=== PATIENT | male | born 1960 | race Caucasian/White ===

== ENCOUNTER 2019-12-09 08:56 | Outpatient (CLI) | payer MEDICAID ==
[~2019-12-09] VITALS: Ht 162.6 cm; Wt 65.8 kg
--- NOTE | 2019-12-09 10:30 | Consultation ---
DATE OF CONSULTATION: 12/09/2019 GASTROENTEROLOGY CONSULTATION CONSULTING PHYSICIAN: Grant Jimenez MD. CHIEF COMPLAINT: G-tube malfunctioning. HISTORY OF PRESENT ILLNESS: This is a 59-year-old male with past medical history of brain tumor, apparently was benign, had a surgery done at [facility] in June of 2019 and after the surgery he needed to have a G-tube placement. At one point, apparently, G-tube came out and they had to replace it. He has a history of colonoscopy and endoscopy done on the same admission, according to the family, now is here for G-tube malfunctioning. PAST MEDICAL HISTORY: Brain tumor, status post surgery. PAST SURGICAL HISTORY: G-tube replacement and brain surgery. MEDICATIONS: Please see medication reconciliation list. FAMILY HISTORY: Kidney cancer in father. SOCIAL HISTORY: The patient denies any tobacco, alcohol, or drug abuse. ALLERGIES: No known allergies. REVIEW OF SYSTEMS: Limited. PHYSICAL EXAMINATION: VITAL SIGNS: Temperature 98, blood pressure 95/56, respirations 20, pulse 100. Height is 5 feet 4 inches, weight is 145. HEENT: Normocephalic and atraumatic. Sclerae are anicteric. NECK: Supple. No evidence of obvious lymphadenopathy. CARDIOVASCULAR: Regular rate and rhythm. Plus S1 and S2. LUNGS: Clear to auscultation bilaterally. ABDOMEN: Positive bowel sounds. Soft and nontender. No rebound. No guarding. No peritoneal sign. EXTREMITIES: No clubbing. No cyanosis. No edema. ASSESSMENT AND PLAN: This is a 59-year-old male with malfunctioning G-tube. The patient had a 22-[place]ian G-tube. We deflated the balloon and replaced it with another new 22-[place]err[place]ian Bard type of G-tube without any complication. The patient was told to keep the site clean. Continue on using the tube. Continue on speech therapy. Consider removing G-tube if he has adequate p.o. intake. Grant Jimenez M.D. DR: ROLAND JOB#: [id number] CC:
[2019-12-09 14:35] VITALS: BP 95/56
== END 2019-12-09 10:56 | disposition home or self-care (01) ==
LOC: PAN 08:56
DX: K94.23 Gastrostomy malfunction (principal); Z80.51 Family history of malignant neoplasm of kidney
CPT/HCPCS: G0463

== ENCOUNTER 2020-04-06 08:59 | Outpatient (CLI) | payer MEDICAID ==
--- NOTE | 2020-04-07 15:29 | General Progress Note ---
Subjective ROS Limited/Unobtainable: Yes Allergies: Coded Allergies: No Known Allergies (Unverified , 12/16/19) Objective General Appearance: alert EENT: normal ENT inspection Neck: supple Cardiovascular: normal rate Respiratory/Chest: lungs clear Abdomen: normal bowel sounds, non tender, soft Extremities: non-tender Assessment/Plan Assessment/Plan: dysphgai is improving plan to remove the GT if not needed recommend swallow Grant Arndt MD Apr 07, 2020 15:29
== END 2020-04-06 15:16 | disposition home or self-care (01) ==
LOC: PAN 08:59
DX: R13.10 Dysphagia, unspecified (principal)
CPT/HCPCS: 99212